=== PATIENT | female | born 1995 | race Two or more races ===

== ENCOUNTER 2017-03-17 15:06 | Emergency (ER) | payer OTHER ==
--- NOTE | ~2017-03-17 | CT2 ---
[facility]. [facility] A Service of [facility] RADIOLOGY TEXT RESULTS PATIENT: CINTHIA LARSON LOCATION: SED : [birth year] UNIT #: [id number] AGE: [address]: Malik Parks MD SEX: F ORDER DR: [id number] [address] [address] [id number] MR#: [id number] Acc #: [id number] NAME: CINTHIA LARSON : 1995 SEX: F STUDY DATE/TIME: 03/17/2017 17:02 UNIT: SED ROOM: STUDY DESCRIPTION: CT Abd and Pelv W Cont Attending Physician: Malik Parks M.D. Ordering Physician: Malik Parks M.D. Primary Care Physician: Milagros Aranda M.D. MEDICAL IMAGING REPORT This report is preliminary unless electronic signature is present. EXAM CT abdomen/pelvis, 03/17/17. HISTORY Flank pain x1 week. Epigastric left upper quadrant pain radiating to back times years. Worse x1 week. TECHNIQUE CT abdomen/pelvis performed with intravenous administration of 100 mL Isovue-370. Enteric contrast also administered. This CT exam was performed with one or more of the following radiation dose reduction techniques: automatic exposure control, adjustment of mA and/or kV according to patient size, and iterative reconstruction. COMPARISON No comparisons. FINDINGS The lung bases are clear. Inferior heart and pericardium unremarkable. Liver, gallbladder, spleen, pancreas, adrenal glands unremarkable. No acute appearing renal abnormality. There is a tiny nonobstructing 2-3 mm calculus in the right mid to upper renal pole. No perinephric inflammatory change. No cystic or solid mass lesion. CT PELVIS: No inguinal adenopathy. The urinary bladder is unremarkable. The uterus and ovaries normal in appearance. No pelvic fluid collection. No pelvic or retroperitoneal adenopathy. The distal esophagus, stomach, small bowel unremarkable. Appendix normal. Colon shows uncomplicated sigmoid diverticulosis. The vascular structures are unremarkable. Bony structures show no acute abnormality. IMPRESSION 1. There is no clearly acute abnormalities seen in the abdomen or STS. [facility] A Service of [facility] RADIOLOGY TEXT RESULTS PATIENT: CINTHIA LARSON LOCATION: SED : [birth year] UNIT #: [id number] AGE: [address]: Malik Parks MD SEX: F ORDER DR: skinny. Cause for the patient's reported symptoms unclear on basis of this examination. The gallbladder, pancreas, and appendix are normal. The kidneys show no acute abnormality. There is a tiny 2-3 mm nonobstructing calculus upper pole of the right kidney. Kidneys otherwise unremarkable. Uterus and adnexal regions normal. No abnormal fluid collections. 2. Not mentioned in body of report above, there is a small area of focal fatty infiltration in segment 4 of the liver adjacent to falciform ligament. No acute hepatic findings. 3. Uncomplicated sigmoid diverticulosis. See remainder of incidental findings in body of report above. Dictated by... Jonh Wallace M.D. THIS IS AN ELECTRONICALLY VERIFIED REPORT Jonh Wallace M.D. at 03/22/2017 10:15 AM Hugo TD: 03/17/2017 22:49 JOB #: [id number] MEDICAL IMAGING REPORT Page 1 of 1
[~2017-03-17 15:06] MED LIST: AUGMENTIN875 MG PO; FLEXERIL10 MG PO; MOTRIN600 M1 PO; NO MEDICATIONS; TESSALON PERLE100 M1 PO; VOLTAREN75 MG PO
[2017-03-17] MEDS ORDERED: IBUPROFEN IB200 M1 PO (15:22)
[2017-03-17 15:58] LABS: URINE SOURCE CLEAN CATCH
[2017-03-17 16:08] LABS: BASOPHIL# 0.1 X10e3 (0-0.3); BASOPHIL% 0.8 % (0-2.5); EOSINOPHIL# 0.2 X10e3 (0-0.7); EOSINOPHIL% 2.5 % (0.0-7.0); HEMATOCRIT 34.2 % (35.0-45.0); HEMOGLOBIN 11.1 gm/dL (12.0-16.0); LYMPHOCYTE# 1.9 X10e3 (1.0-3.5); LYMPHOCYTE% 25.5 % (17.0-45.0); MEAN CELL VOLUME 79.8 FL (83-96); MEAN CORPUSCULAR HGB CONC 32.5 g/dL (30-36); MEAN PLATELET VOLUME 8.9 FL (6.5-11.5); MONOCYTE# 0.4 X10e3 (0-1.0); MONOCYTE% 5.1 % (3.0-12.0); NEUTROPHIL# 4.9 X10e3 (1.5-7.1); NEUTROPHIL% 66.1 % (40-75); PLATELET COUNT 392 X10e3 (140-420); RED BLOOD COUNT 4.29 X10e (3.90-5.30); RED CELL DISTRIBUTION WIDTH 15.6 % (11.0-15.5); WHITE BLOOD COUNT 7.4 X10e3 (4.0-10.5)
[2017-03-17 16:10] LABS: URINE APPEARANCE CLEAR; URINE BILIRUBIN NEG (NEG); URINE BLOOD NEG (NEG); URINE COLOR YELLOW; URINE GLUCOSE NEG (NORM); URINE KETONE NEG (NEG); URINE LEUKOCYTE ESTERASE NEG (NEG); URINE NITRATE NEG (NEG); URINE PROTEIN NEG (NEG); URINE UROBILINOGEN 0.2 MG/DL (NORM)
[2017-03-17 16:16] LABS: MICRO INDICATED? NO
[2017-03-17 16:19] LABS: DIFF IND NO
[2017-03-17 16:21] LABS: ALBUMIN SERUM 4.3 g/dL (3.5-5.0); BILIRUBIN, DIRECT 0.1 mg/dL (0.0-0.2); BILIRUBIN,INDIRECT 0.4 mg/dL (0.0-0.9); BILIRUBIN,TOTAL 0.5 mg/dL (0.2-2.0); BUN/CREATININE RATIO 14.28; CALCIUM SERUM 8.9 mg/dL (8.4-10.2); CREATININE SERUM 0.7 mg/dL (0.6-1.4); POTASSIUM 3.7 mmol/L (3.5-5.1); PROTEIN TOTAL SERUM 7.6 g/dL (6.0-8.3)
== END 2017-03-17 17:35 | disposition home or self-care (01) ==
LOC: SED 15:06
PROVIDERS: Emergency Medicine
DX: R10.84 Generalized abdominal pain (principal); Z91.013 Allergy to seafood
CPT/HCPCS: 36415; 74177; 80048; 80076; 81003; 82150; 83690; 84703; 85025; 96361; 96374; 96375; 99284; J2405; Q9967

== ENCOUNTER → 2017-04-07 | Day surgery (SDC) | payer OTHER ==
[~2017-04-07] MED LIST changes: +IBUPROFEN IB200 M1 PO
--- NOTE | ~2017-04-07 | OR ---
Unit #: [id number] #: [id number] Patient: CINTHIA LARSON [id number] [address] [place], [place] [address] [id number] O MR#: [id number] NAME: CINTHIA LARSON ROOM: Date of Procedure: 04/07/2017 Admission Date: 04/07/2017 Surgeon: Jonh Enamorado M.D. : 1995 Attending Physician: Jonh Enamorado M.D. Primary Care Physician: Milagros Aranda M.D. OPERATIVE REPORT PREOPERATIVE DIAGNOSIS Chronic cholecystitis. POSTOPERATIVE DIAGNOSIS Chronic cholecystitis. PROCEDURE PERFORMED Laparoscopic cholecystectomy. [employer] TECHNICIAN None. ANESTHESIA General anesthesia. ESTIMATED BLOOD LOSS Minimal. IV FLUIDS 800 crystalloid. COMPLICATIONS None. INDICATIONS FOR PROCEDURE The patient is a 21-year-old with right upper quadrant abdominal pain and gallstones. DESCRIPTION OF PROCEDURE The patient was taken to the operating theater and placed in supine position. General anesthesia was induced. The abdomen was prepped and draped. A 5-mm Optiview trocar was placed in the right upper quadrant without difficulty. The abdomen was insufflated to 15 mmHg with CO2. Under direct vision, I placed a subxiphoid 10 mm, right lateral 5 mm, umbilical 5 mm. General inspection of the abdomen revealed distended gallbladder, but minimal adhesions. The gallbladder was retracted up over the liver. We dissected the neck of the gallbladder and identified the cystic duct. Its junction with the gallbladder was confirmed. It was thus skeletonized, doubly hemoclipped, and divided. The cystic artery laid immediately posterior. This was skeletonized, doubly hemoclipped, and divided. The gallbladder was removed with Bovie electrocautery and delivered via the subxiphoid port. Hemostasis was adequate. I removed Unit #: [id number] #: [id number] Patient: CINTHIA LARSON the ports under direct vision, and then closed the wounds with 4-0 Vicryl. The patient tolerated the procedure well and sent to recovery room in good condition. Dictated by... Reinier Costello/jose TD: 04/07/2017 23:22 JOB #: [id number] OPERATIVE REPORT Page 1 of 1 X Jonh Enamorado MD PROCEDURE OPERATIVE NOTE
[2017-04-07 11:04] LABS: ALBUMIN SERUM 4.3 g/dL (3.5-5.0); BILIRUBIN,TOTAL 0.5 mg/dL (0.2-2.0); BUN/CREATININE RATIO 11.42; CALCIUM SERUM 8.8 mg/dL (8.4-10.2); CREATININE SERUM 0.7 mg/dL (0.6-1.4); POTASSIUM 3.4 mmol/L (3.5-5.1); PROTEIN TOTAL SERUM 7.6 g/dL (6.0-8.3)
== END | disposition home or self-care (01) ==
LOC: CSUR 09:04
PROVIDERS: Surgery
DX: K80.10 Calculus of gallbladder with chronic cholecystitis without obstruction (principal); K21.9 Gastro-esophageal reflux disease without esophagitis; F17.210 Nicotine dependence, cigarettes, uncomplicated; Z79.899 Other long term (current) drug therapy; Z98.890 Other specified postprocedural states; Z91.013 Allergy to seafood
CPT/HCPCS: 80053; 84703; 88304; J0690; J1170; J1644; J2250; J3010